=== PATIENT | female | born 2000 | race Caucasian/White ===

== ENCOUNTER 2021-09-19 15:48 | Emergency (ER) | payer OTHER, SELFPAY ==
[2021-09-19 15:57] VITALS: BP 116/76; PULSE 74; RESP 16; TEMP 36.8; O2SAT 99; BMI 27.1
--- NOTE | 2021-09-19 16:44 | CRLHL7_ITS ---
For Patients: As a result of the Century Cures Act, medical imaging exams and procedure reports are released immediately into your electronic medical record. You may view this report before your referring provider. If you have questions, please contact your health care provider. INDICATION: SWALLOWING SENSATION OF A LUMP TECHNIQUE: CT of the neck with 69 ml iodinated contrast agent. Coronal and sagittal reconstructions are included. COMPARISON: None FINDINGS: There is no mass or other lesion within the soft tissues of the suprahyoid or infrahyoid neck. No lymphadenopathy. The oral cavity, nasopharyngeal, oropharyngeal and hypopharyngeal mucosal spaces are normal. No periapical dental disease. The supraglottic, glottic and infraglottic larynx are normal. The airway including the trachea is normal and is patent. The parotid glands, submandibular and sublingual glands are normal in appearance. The thyroid gland is normal in appearance. The vascular structures opacify normally with contrast material. No suspicious lytic or blastic osseous lesions. Mild polypoid mucosal thickening in the left maxillary sinus. Visualized orbital and intracranial contents are normal. Supraclavicular regions, mediastinum and soft tissues of the imaged chest wall are normal. Visualized portions of the upper lungs are clear. IMPRESSION: 1. No suspicious enhancement or neck mass. Normal deep soft tissues of the neck. 2. No evidence of acute inflammation. 3. No cervical lymphadenopathy. Please note that all CT scans at this facility use dose modulation, iterative reconstruction, and/or weight-based dosing when appropriate to reduce radiation dose to as low as reasonably achievable. Dictated by Oleg Holloway MD @ 09/19/2021 6:19:36 PM (Electronically Signed)
--- NOTE | 2021-09-19 16:47 | ED.GENADULT ---
HPI - General Adult General Chief complaint: Sore Throat Stated complaint: Lumps in throat Time Seen by Provider: 09/19/21 16:32 History of Present Illness HPI narrative: This 21-year-old female is a student at [employer]. Her home country is [place] [facility] [place]. She is reporting a sense of a lump in her throat when swallowing. This began about 7 months ago after getting her Miguel and Miguel COVID vaccination. She does not report any pain. She has not had any fevers. She did have an ultrasound at home and there was some enlargement of her thyroid gland but no other complications. She is also seen an Ear Nose and Throat physician here who did prescribe a proton pump inhibitor which she has been taking occasionally. Related Data Home Medications Medication Instructions Recorded Confirmed omeprazole 40 mg capsule,delayed mg 09/19/21 release Previous Rx's Medication Instructions Recorded methylprednisolone 4 mg tablets in 4 mg PO DAILY #21 ea 09/19/21 a dose pack (Medrol (Nabor)) Allergies Allergy/AdvReac Type Severity Reaction Status Date / Time No Known Drug Allergies Allergy Verified 09/19/21 16:10 Review of Systems Status of ROS: Reports: 10 or more systems reviewed and unremarkable except as noted in History and below Narrative: Constitutional: No fevers, no weight gain or loss. Eyes: No discharge. No vision changes. HENT: No congestion, no sore throat, no ear pain. She reports a sense of a lump in her throat when swallowing. Cardiovascular: No chest pain, no palpitations. Respiratory: No shortness of breath, no wheezes, no cough. Gastrointestinal: No abdominal pain, no vomiting, no diarrhea. Genitourinary: No dysuria, no hematuria. Musculoskeletal: Normal range of motion. Skin: No rashes, no pruritis. Neurological: No dizziness, weakness, sensory change, speech change. Endo/Heme/Allergies: No bruising or bleeding. No polydipsia. Pysch: no suicidality, no anxiety, no insomnia. All other systems reviewed and are negative. PFSH PFS Social History Smoking Status: Never smoker Do you use any of these nicotine containing products: None How often do you have a drink containing alcohol: never AUDIT-C Alcohol total score: 0 Non-prescribed substance use: denies use Exam Narrative: Exam Narrative: Constitutional: Well-developed, well-nourished, no acute distress. HEENT: Normocephalic, atraumatic. Oropharynx appears normal without sign of lymphadenopathy or exudate. Neck: Normal range of motion. Nontender. Supple. No palpable lymphadenopathy. Heart: Intact distal pulses. Lungs: No chest discomfort. No wheezes, rhonchi, or rales. Abdomen: Nontender. Back: Normal range of motion. Extremities: Normal range of motion. No injury. Skin: Intact. No rash. Warm. No erythema or pallor. Neurologic: No altered sensation. No weakness. Alert and oriented. Psychiatric: No suicidality. No anxiety or depression. No insomnia. Nursing notes and vitals signs are reviewed. Const: Vital Signs, click to edit/add: Vital Signs - 24 hr 09/19/21 15:57 Temperature 98.2 F Pulse Rate [Right] 74 Respiratory Rate 16 Blood Pressure [Le ft Upper Arm] 116/76 Pulse Oximetry 99 Course Vital Signs Vital signs: Initial Vital Signs Temperature 98.2 F 09/19/21 15:57 Temperature Source Temporal Artery Scan 09/19/21 15:57 Pulse Rate 74 09/19/21 15:57 Pulse Rhythm 09/19/21 15:57 Respiratory Rate 16 09/19/21 15:57 Blood Pressure 116/76 09/19/21 15:57 Blood Pressure Mean 89 09/19/21 15:57 Blood Pressure Position Sitting 09/19/21 15:57 Pulse Oximetry 99 09/19/21 15:57 Oxygen Delivery Method 09/19/21 15:57 Vital Signs Temperature 98.2 F 09/19/21 15:57 Pulse Rate 74 09/19/21 15:57 Respiratory Rate 16 09/19/21 15:57 Blood Pressure 116/76 09/19/21 15:57 Pulse Oximetry 99 09/19/21 15:57 Temperature 98.2 F 09/19/21 15:57 Pulse Rate 74 09/19/21 15:57 Respiratory Rate 16 09/19/21 15:57 Blood Pressure 116/76 09/19/21 15:57 Pulse Oximetry 99 09/19/21 15:57 Medical Decision Making MDM Narrative Medical decision making narrative: This 21-year-old comes in with feeling some abnormality in her throat that she thinks might be a lump and sometimes feels this when she is swallowing. She has had ultrasound of her thyroid. She does not report any fevers or sore throat. Her exam for what can be visualized appears normal. This has been going on for 7 months and she does have an appointment with Ear Nose and Throat in a couple months. Given the duration of her symptoms and her concern about these sensations I did then order a CT scan of the soft tissue of her neck with IV contrast. This returns with normal findings. Additionally lab results are all in normal range. The patient may benefit from a direct visualization of her oropharynx with a nasal scope. She is okay to return home. I did provide prescription for Medrol Dosepak in hopes that that may help her symptoms. Lab Data Labs: Lab Results 09/19/21 09/19/21 09/19/21 Range/Units 17:10 17:10 17:10 WBC 9.40 (4.50-11.00) K/uL RBC 4.40 (4.00-5.20) m/uL Hgb 13.9 (12.0-16.0) gm/dL Hct 41.0 (33.0-51.0) % MCV 93 (80-100) fL MCH 32 (26-34) pg MCHC 34 (32-36) gm/dL RDW Coeff of Heike 12.2 (11.5-15.5) % Plt Count 281 (140-440) K/uL Neut % (Auto) 61.0 (42.0-72.0) % Lymph % (Auto) 29.6 (20-44) % Mckean % (Auto) 7.3 (0.0-11.0) % Eos % (Auto) 1.1 (0.0-7.0) % Baso % (Auto) 0.9 (0.0-3.0) % Neut # (Auto) 5.74 (1.7-7.0) K/uL Lymph # (Auto) 2.78 (0.90-2.90) K/uL Mckean # (Auto) 0.70 (0.00-0.90) K/UL Eos # (Auto) 0.10 (0.00-0.50) K/uL Baso # (Auto) 0.08 (0.00-0.30) K/uL Abs Immat Gran (auto) 0.01 (0.00-0.30) K/uL Sodium 135 (135-149) mmol/L Potassium 3.8 (3.6-5.1) mmol/L Chloride 104 (96-114) mmol/L Carbon Dioxide 23 (20-32) mmol/L BUN 16 (5-24) mg/dL Creatinine 0.8 (0.5-1.5) mg/dL Estimated Creat Clear 83.24 Estimated GFR 107 ml/min Glucose 83 (60-115) mg/dL Calcium 9.2 (8.4-10.6) mg/dL Group A Strep Rapid Not Detected (Not Detecte) Imaging Data ct soft tissue neck: Radiologist's impression: 1. No suspicious enhancement or neck mass. Normal deep soft tissues of the neck. 2. No evidence of acute inflammation. 3. No cervical lymphadenopathy. Discharge Plan Discharge Clinical Impression: Sensation of lump in throat Condition: Stable Additional Instructions: Take medication as prescribed. Follow up with MD as scheduled or return if worsening symptoms happen. Prescriptions: New methylprednisolone [Medrol (Nabor)] 4 mg tablets,dose pack 4 mg PO DAILY Qty: 21 0RF No Action omeprazole 40 mg capsule,delayed release(DR/EC) 0RF Follow Up/Referrals: Provider,Not a Local [Primary Care Provider] - Stand Alone Forms: [employer] Info Instructions
[2021-09-19 17:20] LABS: Basophils Absolute Auto 0.08 K/uL (0.00-0.30); Basophils Percent Auto 0.9 % (0.0-3.0); Eosinophils Percent Auto 1.1 % (0.0-7.0); Hemoglobin* 13.9 gm/dL (12.0-16.0); Immature Granulocytes Abs Auto 0.01 K/uL (0.00-0.30); Lymphocytes Absolute Auto 2.78 K/uL (0.90-2.90); Lymphocytes Percent Auto 29.6 % (20-44); Mean Corpuscular HGB Conc 34 gm/dL (32-36); Mean Corpuscular Hemoglobin 32 pg (26-34); Mean Corpuscular Volume 93 fL (80-100); Monocytes Percent Auto 7.3 % (0.0-11.0); Neutrophils Absolute Auto 5.74 K/uL (1.7-7.0); Platelet Count* 281 K/uL (140-440); RDW Coefficient of Variation % 12.2 % (11.5-15.5)
[2021-09-19 17:27] LABS: Slide Review Reflex No
[2021-09-19 17:39] LABS: Chloride* 104 mmol/L (96-114); Sodium* 135 mmol/L (135-149)
[2021-09-19 17:40] LABS: Potassium* 3.8 mmol/L (3.6-5.1)
[2021-09-19 17:42] LABS: Blood Urea Nitrogen* 16 mg/dL (5-24); Carbon Dioxide* 23 mmol/L (20-32); Creatinine* 0.8 mg/dL (0.5-1.5); Est. Creatinine Clearance* 83.24; Estimated Glomerular Filt Rate 107 ml/min
[2021-09-19 17:43] LABS: Calcium* 9.2 mg/dL (8.4-10.6); Glucose* 83 mg/dL (60-115)
[2021-09-19 18:48] VITALS: BP 135/90; RESP 20; O2SAT 100
== END 2021-09-19 19:11 | disposition home or self-care (01) ==
PROVIDERS: Emergency Provider Emergency Medicine Emergency Medical Services
DX: R09.89 Other specified symptoms and signs involving the circulatory and respiratory systems (principal)
CPT/HCPCS: 36415; 70491; 80048; 85025; 87430; 99284; Q9967